=== PATIENT | female | born 1940 | race Caucasian/White ===

== ENCOUNTER 2017-03-14 17:14 | Inpatient (IN) | payer OTHER ==
[~2017-03-14] VITALS: Ht 162.6 cm; Wt 50.6 kg
[~2017-03-14 17:14] MED LIST: ADULT LOW DOSE81 M1 PO; ASCORBIC ACID500 M3 PO; CALCIUM 600 +1 EACH PO; CENTRUM SILVER1 EAC3 PO; D3 + K2 DOTS 11 EACH PO; LASTACAFT3 ML; LIPITOR40 MG PO; LOSARTAN-HCTZ1 EAC2 PO; METOPROLOL SUCC25 MG PO; PATADAY2.5 ML OP
[2017-03-14 17:45] LABS: HEMATOCRIT 43.4 % (36.0-46.0); MCH 30.1 PG (29.0-34.0); MCHC 32.9 G/DL (30.0-36.0); MCV 91.4 FL (83-99); MEAN PLAT.VOLUME 10.4 uM^3 (9.5-12.4); PLATELET COUNT 184 K/uL (156-360); RBC DIS.WIDTH-CV 12.6 % (11.8-14.6); RBC DIS.WIDTH-SD 41.9 % (39-53); RED BLOOD COUNT 4.75 M/uL (3.80-5.20); WHITE BLOOD COUNT 6.3 K/uL (4.1-10.2)
[2017-03-14 18:01] LABS: CHLORIDE 104 mEq/L (99-109); POTASSIUM 3.7 mEq/L (3.7-5.4); SODIUM 144 mEq/L (136-147)
[2017-03-14 18:03] LABS: GLUCOSE 124 mg/dL (70-99)
[2017-03-14 18:04] LABS: ANION GAP 12 MEQ/L (2-14)
[2017-03-14 18:05] LABS: TROP-I INTERPRETATION NEGATIVE; TROPONIN-I < 0.01 ng/mL (0.0-0.30)
[2017-03-14 18:07] LABS: GFR ESTIMATE (CALCULATED) > 59 mL/min/; UREA NITROGEN (BUN) 14 mg/dL (9-23)
[2017-03-14] MEDS ORDERED: ADVIL200 MG PO (20:24)
[2017-03-14] MEDS ORDERED: PRAVASTATIN SOD80 MG PO (20:25)
[2017-03-14] MEDS ORDERED: CYANOCOBALAM1000 MCG PO (20:25)
[2017-03-14] MEDS ORDERED: DIGOXIN125 MCG PO (20:25)
[2017-03-14] MEDS ORDERED: RANITIDINE HCL150 MG PO (20:25)
[2017-03-14] MEDS ORDERED: VITAMIN D31000 UNIT PO (20:25)
[2017-03-14] MEDS ORDERED: CLARITIN,ALAVAR10 MG PO (20:26)
[2017-03-14] MEDS ORDERED: [UNRECOGNIZED DRUG - OTHER] BOTH EYES (20:26)
[2017-03-14] MEDS ORDERED: OMEGA-31000 M1 PO (20:26)
[2017-03-14 22:11] LABS: DIGOXIN 0.3 ng/mL (0.8-2.0)
[2017-03-14 22:37] VITALS: BP 176/77
[2017-03-14 23:59] LABS: HDL CHOLESTEROL 64 MG/DL (Desirable>=50); LDL CHOLESTEROL 109 mg/dL (Desirable<100); NON-HDL CHOLESTEROL 148 mg/dL (Desirable<160); TOTAL CHOLESTEROL 212 mg/dL (Desirable<200); TRIGLYCERIDES 197 MG/DL (Normal: <150)
[2017-03-15 00:59] LABS: TROP-I INTERPRETATION NEGATIVE; TROPONIN-I < 0.01 ng/mL (0.0-0.30)
[2017-03-15 03:34] VITALS: BP 144/69
[2017-03-15 05:53] LABS: HEMATOCRIT 41.1 % (36.0-46.0); MCH 29.7 PG (29.0-34.0); MCHC 33.1 G/DL (30.0-36.0); MCV 89.7 FL (83-99); MEAN PLAT.VOLUME 10.1 uM^3 (9.5-12.4); PLATELET COUNT 189 K/uL (156-360); RBC DIS.WIDTH-CV 12.6 % (11.8-14.6); RBC DIS.WIDTH-SD 41.4 % (39-53); RED BLOOD COUNT 4.58 M/uL (3.80-5.20); WHITE BLOOD COUNT 6.6 K/uL (4.1-10.2)
[2017-03-15 07:39] VITALS: BP 125/56
[2017-03-15 11:40] VITALS: BP 145/67
[2017-03-16 09:51] LABS: Estimated Average Glucose 117 mg/dL (70-123); HEMOGLOBIN A1c (GLYCOHEMOGLOB) 5.7 % HGB (Below 5.7)
== END 2017-03-15 17:34 | disposition home or self-care (01) | DRG 66 ==
LOC: EME 17:14 → EDOF 21:05 → 5WEST 22:28
PROVIDERS: Emergency Medicine; Internal Medicine
DX: I63.9 Cerebral infarction, unspecified (principal); G31.89 Other specified degenerative diseases of nervous system; I67.2 Cerebral atherosclerosis; G43.109 Migraine with aura, not intractable, without status migrainosus; E78.5 Hyperlipidemia, unspecified; Z86.73 Personal history of transient ischemic attack (TIA), and cerebral infarction without residual deficits; I16.0 Hypertensive urgency; I10 Essential (primary) hypertension; H53.8 Other visual disturbances; R47.81 Slurred speech; R47.01 Aphasia
CPT/HCPCS: 70450; 70551; 71010; 80048; 80061; 80162; 83036; 84484; 85027; 85610; 93005; 99281; 99285; G0378; J1644; J2060

== ENCOUNTER 2017-03-27 11:22 | Inpatient (IN) | payer OTHER ==
[~2017-03-27] VITALS: Ht 165.1 cm; Wt 50.2 kg
[~2017-03-27 11:22] MED LIST changes: +ADVIL200 MG PO; +CLARITIN,ALAVAR10 MG PO; +CYANOCOBALAM1000 MCG PO; +DIGOXIN125 MCG PO; +OMEGA-31000 M1 PO; +PRAVASTATIN SOD80 MG PO; +RANITIDINE HCL150 MG PO; +VITAMIN D31000 UNIT PO; +[UNRECOGNIZED DRUG - OTHER] BOTH EYES
[2017-03-27 12:48] LABS: HEMATOCRIT 42.6 % (36.0-46.0); MCH 29.6 PG (29.0-34.0); MCHC 33.1 G/DL (30.0-36.0); MCV 89.3 FL (83-99); MEAN PLAT.VOLUME 10.6 uM^3 (9.5-12.4); PLATELET COUNT 192 K/uL (156-360); RBC DIS.WIDTH-CV 12.4 % (11.8-14.6); RBC DIS.WIDTH-SD 40.8 % (39-53); RED BLOOD COUNT 4.77 M/uL (3.80-5.20); WHITE BLOOD COUNT 5.1 K/uL (4.1-10.2)
[2017-03-27 13:10] LABS: CHLORIDE 102 mEq/L (99-109); POTASSIUM 3.7 mEq/L (3.7-5.4); SODIUM 141 mEq/L (136-147)
[2017-03-27 13:11] LABS: GLUCOSE 107 mg/dL (70-99)
[2017-03-27 13:13] LABS: ANION GAP 9 MEQ/L (2-14)
[2017-03-27 13:30] LABS: GFR ESTIMATE (CALCULATED) > 59 mL/min/; UREA NITROGEN (BUN) 11 mg/dL (9-23)
[2017-03-27 13:36] LABS: INTER. NORMALIZED RATIO 1.2; PTT 34.5 (25-32)
[2017-03-27] MEDS ORDERED: XARELTO20 MG PO (16:05)
[2017-03-27 17:14] VITALS: BP 160/67
[2017-03-27 20:50] VITALS: BP 134/62
[2017-03-27 21:00] LABS: ADD MIUA? NO; BILIRUBIN NEGATIVE; BLOOD NEGATIVE; COLOR STRAW ((YELLOW)); GLUCOSE (STRIP) NEGATIVE; KETONES NEGATIVE; LEUKOCYTES NEGATIVE; NITRITE NEGATIVE; PROTEIN (STRIP) NEGATIVE; SPECIFIC GRAVITY 1.008 (1.000-1.030); UCUL ADDED? NO; UROBILINOGEN 0.2 MG/DL (0.2-1.0)
[2017-03-28 06:33] LABS: MCH 30.3 PG (29.0-34.0); MCHC 33.6 G/DL (30.0-36.0); MCV 90.1 FL (83-99); MEAN PLAT.VOLUME 10.4 uM^3 (9.5-12.4); PLATELET COUNT 193 K/uL (156-360); RBC DIS.WIDTH-CV 12.4 % (11.8-14.6); RED BLOOD COUNT 4.33 M/uL (3.80-5.20); WHITE BLOOD COUNT 5.9 K/uL (4.1-10.2)
[2017-03-28 06:51] LABS: ANION GAP 7 MEQ/L (2-14); CHLORIDE 106 MEQ/L (99-109); GFR ESTIMATE (CALCULATED) > 59 mL/min/; GLUCOSE 95 mg/dL (70-99); POTASSIUM 3.7 MEQ/L (3.7-5.4); SAMPLE HEMOLYSIS CHECK 0; SAMPLE ICTERIC CHECK 0; SAMPLE LIPEMIA CHECK 0; SODIUM 141 MEQ/L (136-147); UREA NITROGEN (BUN) 11 mg/dL (9-23)
[2017-03-28 07:29] VITALS: BP 138/64
[2017-03-28 11:09] VITALS: BP 135/61
[2017-03-28 14:14] VITALS: BP 144/69
[2017-03-28 16:14] VITALS: BP 133/65
[2017-03-28 20:16] VITALS: BP 130/78
[2017-03-29] VITALS: BP 135/60
[2017-03-29 03:43] VITALS: BP 113/55
[2017-03-29 07:15] VITALS: BP 117/65
[2017-03-29] MEDS ORDERED: ASPIR-LOW81 MG PO (09:18)
== END 2017-03-29 10:05 | disposition home or self-care (01) | DRG 65 ==
LOC: EME 11:22 → EDOF 16:29 → 5WEST 17:07 → 5SOUTH 03-28 12:01 → 5WEST 03-28 12:01 → 5SOUTH 03-28 12:01 → 5WEST 03-28 12:52 → 5SOUTH 03-28 13:46
PROVIDERS: Internal Medicine; Physician Assistant Medical
DX: I63.9 Cerebral infarction, unspecified (principal); I10 Essential (primary) hypertension; E78.5 Hyperlipidemia, unspecified; I34.1 Nonrheumatic mitral (valve) prolapse; K21.9 Gastro-esophageal reflux disease without esophagitis; R13.10 Dysphagia, unspecified; R47.01 Aphasia; I65.21 Occlusion and stenosis of right carotid artery; Z79.01 Long term (current) use of anticoagulants; Z86.73 Personal history of transient ischemic attack (TIA), and cerebral infarction without residual deficits; Z68.1 Body mass index [BMI] 19.9 or less, adult; Z79.82 Long term (current) use of aspirin; Z79.899 Other long term (current) drug therapy; Y92.481 Parking lot as the place of occurrence of the external cause; Z80.3 Family history of malignant neoplasm of breast; Z82.3 Family history of stroke; Z82.49 Family history of ischemic heart disease and other diseases of the circulatory system
CPT/HCPCS: 70450; 70551; 71010; 80048; 81003; 85027; 85610; 85730; 93005; 93880; 99281; 99285; G0378; J2060; J7030